=== PATIENT | female | born 1995 | race Caucasian/White ===

== ENCOUNTER 2018-10-14 07:39 | Emergency (ER) | payer SELFPAY ==
[2018-10-14 07:45] VITALS: BP 147/82
[2018-10-14] MEDS ORDERED: AZITHROMYCIN 250 MG TABLET PO ONE (08:27)
[2018-10-14] MEDS ORDERED: IBUPROFEN 600 MG TABLET PO ONE (08:28)
[2018-10-14] MEDS ORDERED: IPRATROPIUM/ALBUTEROL 0.5-2.5 MG/3 ML AMPUL NEB ONE (08:28)
--- NOTE | 2018-10-14 08:31 | ER Document Report ---
ED General - General Chief Complaint: Ear Pain Stated Complaint: EAR PAIN /COUGH Time Seen by Provider: 10/14/18 08:27 Mode of Arrival: Ambulatory Information source: Patient Notes: Patient is a well-appearing 23-year-old female who presents with 3 week history of cough and ear fullness. Patient reports she was sick about a month ago and has not been able to get rid of it. Patient has associated headache, facial pressure, productive cough, congestion, sore throat, and hoarseness. Her symptoms are exacerbated by laying down. Patient reports yesterday at work she felt hot, took an axillary temperature, and said it was 103F. Patient then left work, went home, and took OTC cold and cough medicine. Patient's temperature today is 98F. Patient has no known illnesses nor does she take any medications. Patient denies nausea, vomiting, shortness of breath, difficulty breathing, palpitations, abdominal pain. TRAVEL OUTSIDE OF THE [place] IN LAST 30 DAYS: No - HPI Onset: Other Onset/Duration: Persistent Quality of pain: No pain Pain Level: Denies Associated symptoms: Body/muscle aches, Productive cough, Rhinnorhea Exacerbated by: Denies, Standing Similar symptoms previously: Yes Recently seen / treated by doctor: Yes - Related Data Allergies/Adverse Reactions: No Known Allergies Allergy (Verified 10/14/18 07:42) Past Medical History - General Information source: Patient - Social History Smoking Status: Never Smoker Cigarette use (# per day): No Chew tobacco use (# tins/day): No Frequency of alcohol use: None Drug Abuse: None Lives with: Family Family History: CAD, DM, Hyperlipidemia, Hypertension. denies: Arthritis, CVA, Malignancy, Thyroid Disfunction - Medical History Medical History: Negative Renal/ Medical History: Reports: Hx Ovarian Cysts - Immunizations Immunizations up to date: No Hx Diphtheria, Pertussis, Tetanus Vaccination: No Review of Systems - Review of Systems Constitutional: Fever. denies: Chills, Diaphoresis, Malaise, Weakness EENT: Nose congestion, Sinus pressure. denies: Ear discharge, Throat pain, Difficulty swallowing Cardiovascular: denies: Chest pain, Palpitations, Syncope, Dizziness Respiratory: Cough. denies: Hemoptysis, Short of breath Gastrointestinal: denies: Abdominal pain, Diarrhea, Nausea, Vomiting, Constipation Genitourinary: denies: Burning, Dysuria, Frequency, Hematuria Musculoskeletal: denies: Back pain, Muscle pain Physical Exam - Vital signs Vitals: Temp Pulse Resp BP Pulse Ox 98.0 F 86 18 147/82 H 96 10/14/18 07:44 10/14/18 07:44 10/14/18 07:44 10/14/18 07:44 10/14/18 07:44 - Notes Notes: PHYSICAL EXAMINATION: GENERAL: Well-appearing, well-nourished and in no acute distress. HEAD: Atraumatic, normocephalic. EYES: Pupils equal round and reactive to light, extraocular movements intact, c onjunctiva are normal. ENT: Nares patent, oropharynx clear without exudates. Moist mucous membranes. NECK: Normal range of motion, supple without lymphadenopathy LUNGS: Breath sounds clear to auscultation bilaterally and equal. No wheezes rales or rhonchi. HEART: Regular rate and rhythm without murmurs ABDOMEN: Soft, nontender, nondistended abdomen. No guarding, no rebound. No masses appreciated. Female : deferred Musculoskeletal: Normal range of motion, no pitting or edema. No cyanosis. NEUROLOGICAL: Cranial nerves grossly intact. Normal speech, normal gait. Normal sensory, motor exams PSYCH: Normal mood, normal affect. SKIN: Warm, Dry, normal turgor, no rashes or lesions noted. Course - Re-evaluation Re-evalutation: 10/14/18 13:47 Temp Pulse Resp BP Pulse Ox 98.0 F 86 18 147/82 H 96 10/14/18 07:44 10/14/18 07:44 10/14/18 07:44 10/14/18 07:44 10/14/18 07:44 Presentation is most consistent with a viral upper respiratory infection. Patient is overall well appearance, vitals within normal limits, well-hydrated. Patient denies any headache, neck pain, and has no evidence of meningismus on examination. Lungs are clear bilaterally. No evidence of respiratory distress. Based on clinical exam and history, I do not suspect an acute pneumonia, meningitis, strep pharyngitis, or an acute encephalitis. No laboratory or imaging testing is indicated at this time. Will discharge patient with return precautions and followup recommendations. They are in agreement this plan have verbalized understanding return precautions. - Vital Signs Vital signs: Temp Pulse Resp BP Pulse Ox 98.0 F 86 18 147/82 H 96 10/14/18 07:44 10/14/18 07:44 10/14/18 07:44 10/14/18 07:44 10/14/18 07:44 Discharge - Discharge Clinical Impression: Cough, Elevated blood pressure reading URI (upper respiratory infection) Qualifiers: URI type: unspecified URI Qualified Code(s): J06.9 - Acute upper respiratory infection, unspecified Ear pain Qualifiers: Laterality: bilateral Qualified Code(s): H92.03 - Otalgia, bilateral Fever Qualifiers: Fever type: unspecified Qualified Code(s): R50.9 - Fever, unspecified Condition: Good Disposition: HOME, SELF-CARE Instructions: Fever ([facility]), Upper Respiratory Illness ([facility]), Viral Syndrome ([facility]) Additional Instructions: Follow up with your [id number] hours for further care or return to the ED IMMEDIATELY if symptoms worsen or you have any concerns. If you cannot afford to follow up with your primary care physician a list of low cost clinics have been provided at the end of your discharge papers as well. Most prescribed medications have multiple side effects. The safest thing to do is when filling your prescription speak to your pharmacist regarding possible interactions with your normal home medications and over the counter medications such as Ibuprofen, Tylenol, Benadryl. If you experience any symptoms that cause you discomfort or concern you should discontinue the medication immediately and return to the emergency room or call your primary care physician. It is very important that you take all of your antibiotics until they are gone even if you are feeling better. Please return to the emergency department immediately if you began having worsening shortness of breath, become confused, have worsening pain, pass out, have persistent vomiting that prevents you from being able to drink fluids for more than 12 hours, or have any other symptoms that are worrisome to you. Please follow-up with your primary care doctor in the next 1-2 days. Prescriptions: Azithromycin [Zithromax 250 mg Tablet] 250 mg PO DAILY #5 tablet Forms: Elevated Blood Pressure, Return to Work
== END 2018-10-14 09:09 | disposition home or self-care (01) ==
LOC: ER 07:39
DX: R05 Cough (principal); R03.0 Elevated blood-pressure reading, without diagnosis of hypertension; J06.9 Acute upper respiratory infection, unspecified; H92.03 Otalgia, bilateral; R50.9 Fever, unspecified
CPT/HCPCS: 94640; 99283; J7620